=== PATIENT | female | born 1985 | race Caucasian/White ===

== ENCOUNTER 2024-09-17 08:53 | Emergency (ER) | payer OTHER, MEDICAID, SELFPAY ==
[2024-09-17] VITALS (7 sets, daily range): BP systolic 122–147; BP diastolic 89–99; PULSE 79–96; RESP 18–22; TEMP 36.6–36.7; O2SAT 99–100
--- NOTE | ~2024-09-17 | XR_ITS ---
XR chest 2V Ordering provider: Petar Jamison MD History: 39 years Female with . dizziness PT STATES HISTORY OF HIGH BP . Comparison: None. FINDINGS: MEDIASTINUM: The cardiac silhouette is not enlarged. LUNGS: No infiltrates, effusions or pneumothorax. Prominent bronchovascular markings in the lower lobes. OTHER: No free air under the diaphragm. IMPRESSION: No acute cardiopulmonary pathology. Reviewed, dictated and finalized at location A.
--- NOTE | ~2024-09-17 | CT_ITS ---
CT brain wo con Ordering provider: Martha Flor APRN History: 39 years Female with . sudden onset dizziness, tunnel vision . Comparison: None. Technique: CT of the head without contrast. Radiation reduction technique utilized.The dose-length product was 605.33 mGy-cm. FINDINGS: BRAIN PARENCHYMA AND CSF SPACES: No midline shift, mass effect or hemorrhage. The brain parenchyma a nd CSF spaces are otherwise normal. VISUALIZED PARANASAL SINUSES: Well aerated. MASTOIDS: Well aerated. BONES: The bones appear intact. SOFT TISSUES: Visualized nasopharynx is normal. Superficial soft tissues are normal. IMPRESSION: No acute intracranial findings. Reviewed, dictated and finalized at location A.
--- NOTE | 2024-09-17 08:56 | ECG_ITS ---
Test Date: 2024-09-17 09:16:34 Measurements Intervals [place] Rate: 87 P: 33 VT: 170 QRS: 19 QRSD: 81 T: 16 QT: 357 QTc: 430 Interpretive Statements SINUS RHYTHM POSSIBLE LEFT ATRIAL ENLARGEMENT [-0.1mV P WAVE IN V1/V2] NONSPECIFIC T WAVE ABNORMALITY ABNORMAL ECG No previous ECG available for comparison Electronically Signed On 09-17-2024 10:47:36 CDT by Tigre Alexandre M.D.
[2024-09-17 09:18] LABS: BEDSIDEPREGUCG Negative (Negative)
[2024-09-17 09:20] LABS: Basophils Percent Auto 0.7 % (0.2-1.2); Eosinophils Absolute Auto 0.3 K/mm3 (0-0.3); Eosinophils Percent Auto 4.3 % (0-4.4); Hematocrit 38.7 % (37.0-47.0); Immature Granulocyte Absolute 0.03 K/mm3 (0.00-0.031); Immature Granulocyte Percent A 0.5 % (0-0.5); Lymphocytes Absolute Auto 1.77 K/mm3 (0.9-3.2); Lymphocytes Percent Auto 30.1 % (18.3-44.2); Mean Corpuscular HGB Conc 33.6 g/dl (32-36); Mean Corpuscular Hemoglobin 30.3 pg (26-34); Mean Corpuscular Volume 90.2 fl (80-100); Mean Platelet Volume 9.8 fl (7.4-10.4); Monocytes Absolute Auto 0.5 K/mm3 (0.1-0.6); Neutrophils Absolute Auto 3.3 K/mm3 (1.3-6.7); Neutrophils Percent Auto 55.4 % (45.5-73.1); Platelet Count Result 232 k/mm3 (150-375); Red Blood Count 4.29 M/mm3 (4.2-5.4); Red Cell Distribution Width 14.9 % (11.5-14.5); White Blood Count 5.9 K/mm3 (4.5-10.0)
[2024-09-17 09:27] LABS: Add Urine Microscopic? YES; Appearance Urine Cloudy (Clear); Bacteria Urine None Seen /hpf; Bilirubin Urine Negative (Negative); Blood Urine Negative (Negative); Color Urine Yellow (Yellow); Glucose Urine UA Negative (Negative); Ketones Urine Negative (Negative); Leukocyte Esterase Ur Negative LEU/UL (Negative); Nitrate Urine Negative (Negative); Non Pathogenic Casts 0-2; Protein Urine Negative (Negative); RBC Urine 0-2 /hpf (0-2); Specific Grav Ur 1.023 (1.001-1.035); Squamous Epithelial Cell Urine Moderate /hpf (Few); Urobilinogen Urine 0.2 mg/dL (<2.0); WBC Urine 0-5 /hpf (0-3); pH Urine 5.5 (5.0-9.0)
[2024-09-17 09:34] LABS: Alanine Aminotransferase 19 U/L (6-35); Albumin Level 4.1 g/dL (3.5-5.1); Alkaline Phosphatase 80 U/L (38-126); Anion Gap 6 mmol/L (4-12); Aspartate Amino Transferase 22 U/L (14-36); Bilirubin,Total 0.4 mg/dL (0.2-1.3); Blood Urea Nitrogen 13 mg/dL (7-17); Calcium 10.1 mg/dL (8.4-10.2); Carbon Dioxide 25 mmol/L (22-30); Chloride 107 mmol/L (98-107); Estimated CRCL calculation 99 ml/min; Estimated Glomerular Filt Rate > 60; Glucose 103 mg/dL (65-110); Potassium 4.4 mmol/L (3.4-5.0); Sodium 138 mmol/L (137-145)
--- NOTE | 2024-09-17 09:45 | ED.DIZZY ---
HPI - Dizziness General Chief Complaint: Dizziness Stated Complaint: dizzy, vision blurred Time Seen by Provider: 09/17/24 09:03 History of Present Illness HPI Narrative: Patient is a 39-year-old female who presents to the ER with sudden onset of dizziness, tunnel vision and extreme brain fog. Patient reports she has a history of PCOS for which she is currently taking a high dose of Progesterone (400mg/day). She reports she takes Victoza was with pneumonia last week so she skipped 2 weeks. Patient reports she was diagnosed pneumonia last week so she has been on doxycycline and using a steroid inhaler. She reports she is followed by endocrinology and they ordered an upcoming parathyroid scan. Patient denies chest pain, shortness a breath, or other signs/ symptoms infection. She does endorse right lower quadrant pain that increases with palpation. Related Data Home Medications Medication Instructions Recorded Confirmed allopurinol 100 mg tablet 100 mg PO DAILY 03/15/24 norethindrone acetate 5 mg tablet 5 mg PO BID 07/18/24 liraglutide 0.6 mg/0.1 mL (18 mg/3 1.8 mg subcut DAILY 07/19/24 07/19/24 mL) subcutaneous pen injector (Victoza 2-James) Allergies Allergy/AdvReac Type Severity Reaction Status Date / Time No Known Allergies Allergy Verified 09/17/24 08:54 Review of Systems Review of Systems: All systems reviewed & are unremarkable except as noted in HPI and below PMFSH Past Medical History Medical History Broken arm Gout Hypertension Migraine Family History Family History Father Alcoholism Depression Heart disease Cerebrovascular accident Mother Hypertension Social History Social History Smoking status: Never smoker Second hand tobacco smoke exposure: No Alcohol intake: current Alcohol use details: Wine Substance use: never Do You Feel Safe in your Home?: Yes Lack of Transportation: No Lack of Food: Never True Current Housing: I Have Housing Concerned About Future Housing: No Difficulty Paying Gas/Electric Bills: No Difficulty Paying for Meds: No Currently Unemployed: No Education: Master's Degree or Higher Difficulty w/ Childcare or Family Care: No Exam Narrative: GENERAL: Well appearing, well-nourished, non-toxic, in no acute distress. HEAD: Normocephalic, atraumatic. NECK: Supple. No adenopathy, no masses. Palpable R sided cervical lymph node RESPIRATORY: Airway patent, respirations nonlabored. Clear to auscultation bilaterally, no rales, rhonchi, wheezing. CARDIOVASCULAR: Regular rate and rhythm without murmurs, rubs, or gallops. Peripheral pulses 2+ and equal bilaterally. ABDOMINAL: Soft, mildly tender RLQ, nondistended, no hepatosplenomegaly. Normoactive BS. MUSCULOSKELETAL: Moves all extremities. Strength/ROM intact without gross deformities. SKIN: Warm, dry, normal color. No rashes. NEURO: A&O X3. Speech clear. Cranial nerves II-XII grossly intact. Steady gait. No ataxic movements. PSYCHIATRIC: Appropriate mood and affect. Normal interaction. Course Vital Signs Vital signs: Vital Signs Temperature 36.6 C 09/17/24 09:07 Pulse Rate 93 09/17/24 09:07 Respiratory Rate 19 09/17/24 09:07 Blood Pressure 147/89 H 09/17/24 09:07 Pulse Oximetry 100 09/17/24 09:07 Temperature 36.6 C 09/17/24 10:34 Pulse Rate 86 09/17/24 11:17 Respiratory Rate 22 H 09/17/24 11:17 Blood Pressure 122/90 09/17/24 11:17 Pulse Oximetry 100 09/17/24 11:17 Oxygen Delivery Room Air 09/17/24 09:20 MDM - Dizziness MDM Narrative Medical decision making narrative: Will order a head CT scan due to the patient's son onset of dizziness, tunnel vision and extreme brain fog. Will check patient's TSH levels since she has an endocrinology history.
[2024-09-17 10:11] LABS: Prothrombin Time 13.3 Seconds (11.1-14.7)
[2024-09-17 10:12] LABS: Partial Thromboplastin Time 22.5 Seconds (22.3-36.8)
[2024-09-17 10:15] LABS: D Dimer < 0.27 ug/mL (<0.48)
[2024-09-17] MEDS: SODIUM CHLORIDE 0.9% IV 1,000 ML 999 ML IV CONT (10:24)
[2024-09-17 10:31] LABS: Influenza A QL RT-PCR Negative (Negative); Influenza B QL RT-PCR Negative (Negative); RSV RNA, RT-PCR Negative (Negative); SARS-CoV-2 RNA PCR Negative (Negative)
[2024-09-17] MEDS: MECLIZINE HCL 25 MG TABLET PO (11:34)
== END 2024-09-17 12:15 | disposition home or self-care (01) ==
PROVIDERS: Emergency Medicine; Emergency Provider Registered Nurse; PCP Family Medicine
DX: R42 Dizziness and giddiness (principal); H53.10 Unspecified subjective visual disturbances; Z20.822 Contact with and (suspected) exposure to COVID-19; I10 Essential (primary) hypertension
CPT/HCPCS: 36415; 70450; 71046; 80053; 81001; 81025; 84443; 85025; 85380; 85610; 85730; 87637; 93005; 96360; 99284; A9270; J7030